=== PATIENT | female | born 1995 | race African-American/Black ===

== ENCOUNTER 2022-12-08 17:49 | Observation (INO) | payer MEDICAID ==
[~2022-12-08] VITALS: Ht 167.6 cm; Wt 88.5 kg
== END 2022-12-08 20:10 | disposition home or self-care (01) ==
LOC: SPU 17:49 → OBSVTOIN 17:49 → INTOOBSV 17:49 → SPU 18:00
PROVIDERS: ADMIT Obstetrics & Gynecology; ATTEND Obstetrics & Gynecology
DX: O62.9 Abnormality of forces of labor, unspecified (principal); Z3A.39 39 weeks gestation of pregnancy
CPT/HCPCS: 81002; G0378

== ENCOUNTER 2022-12-09 06:35 | Inpatient (IN) | payer MEDICAID ==
[~2022-12-09] VITALS: Ht 167.6 cm; Wt 88.5 kg
[2022-12-09] MEDS ORDERED: DINOPROSTONE 10 MG SUPP VG ONE (10:45)
[2022-12-09] MEDS ORDERED: OXYTOCIN/0.9 % SODIUM CHLORIDE 1,000 ML IV SCH (10:45)
[2022-12-09] MEDS ORDERED: AMPICILLIN SODIUM 2 GM in NS 100 ML IV ONE (10:45)
[2022-12-09] MEDS ORDERED: TERBUTALINE SULFATE 1 MG/ML VIAL SUBCUT ONE (10:45)
[2022-12-09] MEDS ORDERED: NALBUPHINE HCL 10 MG/ML AMP IM PRN (10:45)
[2022-12-09] MEDS ORDERED: NALBUPHINE HCL 10 MG/ML AMP IVP PRN (10:45)
[2022-12-09 11:19] LABS: BASOPHILS % (AUTO) 0.3 % (0.0-2.0); EOSINOPHILS % (AUTO) 0.6 % (0.0-4.0); HEMATOCRIT 31.2 % (36-48); HEMOGLOBIN 10.1 g/dL (12.0-16.0); LYMPHOCYTES % (AUTO) 14.5 % (20.5-51.5); MEAN CORPUSCULAR HEMOGLOBIN 26 pg (27-31); MEAN CORPUSCULAR HGB CONC 32 % (32-36); MEAN CORPUSCULAR VOLUME 81 fL (79.0-98.0); MONOCYTES # (AUTO) 0.6 K/uL (0.0-1.0); MONOCYTES % (AUTO) 8.9 % (1.7-9.3); NEUTROPHILS # (AUTO) 5.2 K/uL (1.8-7.7); NEUTROPHILS % (AUTO) 75.7 % (40.0-70.0); PLATELET COUNT (AUTO) 200 K/uL (130-430); RED BLOOD CELL COUNT(AUTO) 3.85 MIL/uL (4.2-6.2); RED CELL DISTRIBUTION WIDTH 15.6 % (9.0-15.0); WHITE BLOOD COUNT (AUTO) 6.8 K/uL (4.8-10.8)
[2022-12-09 12:06] VITALS: BP_SYST 137; PULSE 108; RESP 18; TEMP 99.1
[2022-12-09] MEDS ORDERED: MORPHINE 2 MG/ML INJ. SYRINGE IVP PRN (15:30)
[2022-12-09] MEDS ORDERED: AMPICILLIN SODIUM 2 GM VIAL ONE (16:02)
[2022-12-09] MEDS ORDERED: fentaNYL CITRATE/PF 100 MCG/2 ML AMP ONE (16:04)
[2022-12-09] MEDS ORDERED: ROPIVACAINE HCL/PF 0.2% 200 ML ONE (16:04)
[2022-12-09] MEDS: LR 1,000 ML IV SCH ×2 (16:19→19:22)
[2022-12-09] MEDS ORDERED: FENT2mCg/mL-ROPIVA0.2%/NS EPID 200 ML EP SCH (17:45)
[2022-12-09] MEDS ORDERED: ONDANSETRON HCL 4 MG/2 ML VIAL IVP PRN (17:45)
[2022-12-09] MEDS ORDERED: DIPHENHYDRAMINE INJ 50 MG/ML VIAL IVP PRN (17:45)
[2022-12-09] MEDS ORDERED: NALOXONE HCL 0.4 MG/ML AMP (NARCAN) IVP PRN (17:45)
[2022-12-09] MEDS: AMPICILLIN SODIUM 1 GM in NS 50 ML IV SCH (20:05)
[2022-12-09] MEDS ORDERED: AMPICILLIN SODIUM 1 GM VIAL ONE (23:58)
[2022-12-10] MEDS: AMPICILLIN SODIUM 1 GM in NS 50 ML IV SCH ×2 (00:03→04:10)
[2022-12-10] MEDS ORDERED: AMPICILLIN SODIUM 1 GM VIAL ONE ×2 (03:56→04:07)
[2022-12-10] MEDS ORDERED: ROPIVACAINE HCL/PF 0.2% 200 ML ONE (05:25)
[2022-12-10] MEDS ORDERED: fentaNYL CITRATE/PF 100 MCG/2 ML AMP ONE (06:35)
[2022-12-10] MEDS ORDERED: fentaNYL CITRATE/PF 100 MCG/2 ML AMP EP ONE (06:45)
[2022-12-10] MEDS ORDERED: HYDROcodone/ACETAMIN 5-325 MG TAB (NORCO/ VICODIN) PO PRN (07:00)
[2022-12-10] MEDS ORDERED: OXYTOCIN 10 UNIT/ML VIAL IM ONE (07:00)
[2022-12-10] MEDS ORDERED: OXYTOCIN 10 UNIT/ML VIAL ONE (07:13)
[2022-12-10] MEDS: OXYCODONE/ACETAMINOPHEN 5-325 TABLET PO PRN ×2 (11:05→20:14)
[2022-12-10] MEDS ORDERED: IBUPROFEN 600 MG TABLET PO ONE (12:33)
[2022-12-10] MEDS: IBUPROFEN 600 MG TABLET PO SCH ×2 (17:59→23:29)
[2022-12-10] MEDS: DOCUSATE SODIUM 100 MG CAPSULE PO SCH (20:13)
[2022-12-10] MEDS ORDERED: WITCH HAZEL LEAF 1 MED.PAD MED.PAD TP PRN (21:45)
[2022-12-10] MEDS ORDERED: DERMOPLAST SPRAY TP PRN (21:45)
[2022-12-11] MEDS: OXYCODONE/ACETAMINOPHEN 5-325 TABLET PO PRN ×2 (02:38→09:53)
[2022-12-11 06:20] LABS: HEMATOCRIT 26.3 % (36-48); HEMOGLOBIN 8.3 g/dL (12.0-16.0)
[2022-12-11] MEDS: IBUPROFEN 600 MG TABLET PO SCH ×2 (06:45→12:49)
[2022-12-11] MEDS: DOCUSATE SODIUM 100 MG CAPSULE PO SCH (09:52)
== END 2022-12-11 14:55 | disposition home or self-care (01) | DRG 560 ==
LOC: SPU 09:31
PROVIDERS: ADMIT Obstetrics & Gynecology; ATTEND Obstetrics & Gynecology
PROC: 10D07Z6 Extraction of Products of Conception, Vacuum, Via Natural or Artificial Opening (ICD-10-PCS; principal; 2022-12-10)
PROC: 3E0P7VZ Introduction of Hormone into Female Reproductive, Via Natural or Artificial Opening (ICD-10-PCS; 2022-12-10)
PROC: 0W8NXZZ Division of Female Perineum, External Approach (ICD-10-PCS; 2022-12-10)
PROC: 3E0R3BZ Introduction of Anesthetic Agent into Spinal Canal, Percutaneous Approach (ICD-10-PCS; 2022-12-10)
PROC: 00HU33Z Insertion of Infusion Device into Spinal Canal, Percutaneous Approach (ICD-10-PCS; 2022-12-10)
DX: O48.0 Post-term pregnancy (principal); Z37.0 Single live birth; O36.8130 Decreased fetal movements, third trimester, not applicable or unspecified; O99.824 Streptococcus B carrier state complicating childbirth; Z3A.40 40 weeks gestation of pregnancy
CPT/HCPCS: 36415; 81002; 85018; 85025; 86592; 86886; 86900; 86901; 94760; J0290; J2270; J2590; J3010; J7120